=== PATIENT | female | born 1945 | race Caucasian/White ===

== ENCOUNTER 2025-01-18 08:54 | Outpatient (REF) | payer MEDICARE, SELFPAY ==
--- OUTSIDE RECORDS SUMMARY | 2025-01-18 09:59 | XMS_ITS ---
Author Name [facility] Organization Unknown Care Team Organization Name Specialty Phone Email Start Date End Da te [facility] 10/31/2024 [facility] JAJA RUSSELL Primary Care 01/19/2022 10/31/2023
== END 2025-01-18 08:55 | disposition home or self-care (01) ==
LOC: HO.HPHYSR 08:54
PROVIDERS: Visit Provider Physical Medicine & Rehabilitation
DX: M54.16 Radiculopathy, lumbar region (principal)
CPT/HCPCS: 62323; J2003; J3301

== ENCOUNTER 2025-01-18 08:54 | Outpatient (AMB) | payer MEDICARE, BC, SELFPAY ==
[2025-01-18 08:56] VITALS: BP 110/44; PULSE 63; TEMP 36.9; BMI 40.0
--- NOTE | 2025-01-18 08:56 | A.PHYSOV_ITS ---
Vital Signs 01/18/25 08:56 Height 5 ft Weight 205 lb BMI 40.0 BP 110/44 L Blood Pressure Location Lt radial Position Sitting Pulse 63 Pulse Source Pulse Oximeter Temp 98.4 F Temp Source Temporal Artery Scan Intake Visit Reasons: Lumbar VICKY L5-S1 Intake Note: 79 year old female here for procedure L5-S1 Epidural Steroid Injection Signal Wirer Required: No Allergies hydrocortisone (From Westcort ([id number])) Allergy (Unknown, Verified 01/16/25 13:56) Unknown neomycin (From Westcort ([id number])) Allergy (Unknown, Verified 01/16/25 13:56) Unknown Penicillins Allergy (Unknown, Verified 01/16/25 13:56) Unknown phenylephrine Allergy (Unknown, Verified 01/16/25 13:56) Unknown polymyxin B (From Westcort ([id number])) Allergy (Unknown, Verified 01/16/25 13:56) Unknown tetracaine Allergy (Unknown, Verified 01/16/25 13:56) Unknown tropicamide Allergy (Unknown, Verified 01/16/25 13:56) Unknown Office Procedures Procedure Details: Preop diagnosis: Lumbar radiculitis Postop diagnosis: The same After informed consent was obtained patient was brought into the procedure room and placed in the prone position on the procedure table. Skin over the lumbar sacral area was prepped and draped in usual sterile manner. [] interlaminar space was visualized utilizing fluoroscopy. After skin was anesthetized with 1% lidocaine solution, 3.5 in 20 gauge Toughy needle was introduced percutaneously and advanced toward the epidural space at the indicated level. Loss of resistance technique was utilized. Needle placement was verified utilizing 3 cc of Omnipaque contrast solution. Excellent epidural spread was visualized without evidence of vascular uptake. Total volume of 8 cc containing 2 cc of 1% lidocaine, 40 mg of triamcinolone and normal saline solution were injected after negative aspiration for blood and cerebrospinal fluid. Radiation exposure was documented in the chart. Lumbar Interlaminar Epidural 00829- use with FL Gd order: Lumbar Interlaminar Epidural Steroid Injection 57276 Procedure code (CPT) selection complete Office Meds Kenalog 40 mg/mL suspension for injection Performing Provider: Chacorta Bella DO Performing Location: [facility] Administered by: Chacorta Bella DO on 01/18/25 09:00 Dose Route Admin Location Dispensed Lot Number Expiration Date [facility] Boiler Control Technician 40 mg IM 1 mL [id number] AMNEAL BIOS CIEN Total Dispensed Waste 1 mL 0 % lidocaine (PF) 10 mg/mL (1 %) injection solution Performing Provider: Chacorta Bella DO Performing Location: [facility] Administered by: Chacorta Bella DO on 01/18/25 09:00 Dose Route Admin Location Dispensed Lot Number Expiration Date [facility] Boiler Control Technician 5 mL epidural 30 mL [id number] EUGIA US L LC Total Dispensed Waste 30 mL 83.33 % Assessment & Plan Assessment & Plan (1) Lumbar radiculitis: Code(s): M54.16 - Radiculopathy, lumbar region Category: Medical Plan: Procedure completed Orders: Orders AMB Lumbar Interlaminar Epidural Steroid Injection Today M54.16 - Radiculopathy, lumbar region FL Gd L Spine Interlaminar Inj Today M54.16 - Radiculopathy, lumbar region Coding Level of Care Code Procedure Only Diagnoses Lumbar radiculitis M54.16 CPT Codes Lumbar Interlaminar Epidural Steroid I - 23839 - Lumbar Interlaminar Epidural: Lumbar Interlaminar Epidural Steroid Injection [id number] ([id number])
--- OUTSIDE RECORDS SUMMARY | 2025-01-18 09:44 | XMS_ITS | Encounter Summary ---
Author Organization [facility] Address [address] [place] [address] Care Team Providers Care Screw Eye Assembler Name Role Phone Cordell Guevara MD Primary Care Provider [phone] Moses Reis MD Unavailable Unavailable Joaquim Cross MD Unavailable Unavailabl e Reason for Visit * Reason Onset Date Comments Hand Trimmer Feedback 12/09/2022 REFERRAL TO CARD IOLOGY Encounter Details Date Type Department Care Team Description 12/09/2022 Telephone Adult Medicine - [place] [address] [place] [address] Cordell Guevara MD [address] [place] [address] Hand Trimmer Feedback (REFERRAL TO CARDIOLOGY) Social History Tobacco Use Types Packs/Day Years Used Date Smoking Tobacco: Former Cigarettes 5 42 Q uit: 2010 Smokeless Tobacco: Never Alcohol Use Standard Drinks/Week Comments No 0 (1 standard drink = 0.6 oz pur e alcohol) Alcohol Habits Answer Date Recorded How often do you have a drin k containing alcohol? Never 07/23/2022 How many drinks containing a lcohol do you have on a typical day when you are drinking? Patient does not drink 07/23/2022 How often do you have six or more drinks on one occasion? Never 07/23/2022 Social Isolation Answer Date Recorded In a typical week, how many times do you talk on the phone with family, friends, or neighbors? More than three times a week 07/23/2022 How often do you get togethe r with friends or relatives? More than three times a week 07/23/2022 How often do you attend chur or congregational services? Never 07/23/2022 Do you belong to any clubs o r organizations such as zoroastrian groups, unions, fraternal or athletic groups, or school groups? Yes 07/23/2022 How often do you attend meet ings of the clubs or organizations you belong to? Never 07/23/2022 Are you now , , , , never or living with a partner? 07/23/2022 Physical Activity Answer Date Recorded On average, how many days pe r week do you engage in moderate to strenuous exercise (like walking fast, running, jogging, dancing, swimming, biking, or other activities that cause a light or heavy sweat)? 2 days 07/23/2022 On average, how many minutes do you engage in exercise at this level? 20 min 07/23/2022 Stress Answer Date Recorded Do you feel stress - tense, restless, nervous, or anxious, or unable to sleep at night because your mind is troubled all the time - these days? Not at all 07/23/2022 Financial Resource Strain Answer Date R ecorded How hard is it for you to pa y for the very basics like food, housing, medical care, and heating? Not hard at all 07/23/2022 Intimate Partner Violence Answer Date R ecorded Within the last year, have y ou been afraid of your partner or ex-partner? No 07/23/2022 Within the last year, have y ou been humiliated or emotionally abused in other ways by your partner or ex-partner? No Within the last year, have y ou been kicked, hit, slapped, or otherwise physically hurt by your partner or ex-partner? No 07/23/2022 Within the last year, have y ou been raped or forced to have any kind of sexual activity by your partner or ex-partner? No 07/23/2022 Food Insecurity Answer Date Recorded Within the past 12 months, y ou worried that your food would run out before you got money to buy more. Never true 07/23/2022 Within the past 12 months, t he food you bought just didn't last and you didn't have money to get more. Never true 07/23/2022 Housing Stability Answer Date Recorded In the last 12 months, was t here a time when you were not able to pay the mortgage or rent on time? No 07/23/2022 In the last 12 months, how many places have you lived? 1 07/23/2022 In the last 12 months, was t here a time when you did not have a steady place to sleep or slept in a intermediate (including now)? No 07/23/2022 Sex Assigned at Date Recorded Not on file Job Start Date Occupation Industry Not on file Not on file Not on file documented as of this encounter Miscellaneous Notes * Telephone Encounter - April uRbychie - 12/09/2022 11:25 AM EDT Authorization/Referral - [id number] Certification Status: A1 - Certified in Total Review Information Review Type: Referral - Initial Review #: [id number] Tracking #: Review Decision Reason: Service Type: Consultation Place of Service: 11 Type: Visits Quantity: 12 Event Date: 12/09/2022 - 12/09/2023 documented in this encounter Plan of Treatment Not on file documented as of this encounter Visit Diagnoses Not on filedocumented in this encounter Care Teams Screw Eye Assembler Relationship Specialty Start Date End Date Cordell Guevara MD [address] [place] [address] PCP - General 04/25/10 Moses Reis MD [address] [place] [address] Vascular Surgery 07/23/22 Joaquim Cross MD [address] [place] [address] Referring Physician Internal Medicine 07/23/22 documented as of this encounter
--- OUTSIDE RECORDS SUMMARY | 2025-01-18 09:44 | XMS_ITS | Encounter Summary ---
Author Organization [facility] Address [address] [place] [address] Care Team Providers Care Visual Merchandising Director Name Role Phone Cordell Guevara MD Primary Care Provider [phone] [phone] Moses Reis MD Unavailable Unavailable Joaquim Cross MD Unavailable Unavailabl e Encounter Details Date Type Department Care Team Description 05/08/2019 [place] Machine Operator Report Medical Records [address] [place] [id number] Faustino Reis Social History Tobacco Use Types Packs/Day Years Used Date Smoking Tobacco: Former Cigarettes 5 42 Smokeless Tobacco: Never Comments:started smoking aga in 1 pack every 3 days Alcohol Use Standard Drinks/Week Comments No 0 [...] How often do you attend chur or spiritism services? Never 07/23/2022 Do you belong to any clubs o r organizations such as mu-ism groups, unions, fraternal or athletic groups, or [...] place to sleep or slept in a fpc (including now)? No 07/23/2022 Sex Assigned at Date Recorded Not on file Job Start Date Occupation Industry Not on file Not on file Not on file documented as of this encounter Plan of Treatment Not on file documented as of this encounter Visit Diagnoses Not on filedocumented in this encounter Care Teams Visual Merchandising Director Relationship Specialty Start Date End Date Cordell Guevara MD [address] [place] [address] PCP - General 04/25/10 Moses Reis MD [address] [place], [place] Vascular Surgery 07/23/22 Joaquim Cross MD [address] [place] [address] Referring Physician Internal Medicine 07/23/22 documented as of this encounter
--- OUTSIDE RECORDS SUMMARY | 2025-01-18 09:44 | XMS_ITS | Encounter Summary ---
Author Organization [facility] Address [address] [place] [address] Care Team Providers Care Key Bed Installer Name Role Phone Cordell Guevara MD Primary Care Provider [phone] Moses Reis MD Unavailable Unavailable Joaquim Cross MD Unavailable Unavailabl e Encounter Details Date Type Department Care Team Description 12/17/2019 Orders Only Radiology - [address] [address] Radiology, Authorizing Social History Tobacco Use Types Packs/Day Years [...] week 07/23/2022 How often do you attend [facility] or pentecostal services? Never 07/23/2022 Do you belong to any clubs o r organizations such as orthodox groups, unions, fraternal or athletic groups, or [...] place to sleep or slept in a retirement (including now)? No 07/23/2022 Sex Assigned at Date Recorded Not on file Job Start Date Occupation Industry Not on file Not on file Not on file documented as of this encounter Plan of Treatment Not on file documented as of this encounter Visit Diagnoses Not on filedocumented in this encounter Care Teams Key Bed Installer Relationship Specialty Start Date End Date Cordell Guevara MD [address] [place] [id number] PCP - General 04/25/10 Moses Reis MD [address] [place] [address] Vascular Surgery 07/23/22 Joaquim Cross MD [address] [place] [address] Referring Physician Internal Medicine 07/23/22 documented as of this encounter
--- OUTSIDE RECORDS SUMMARY | 2025-01-18 09:45 | XMS_ITS | Clinical Summary ---
Author Organization [facility] Address [address] [place] [address] Care Team Providers Care Group Fitness Department Head Name Role Phone Cordell Guevara MD Primary Care Provider [phone] Moses Reis MD Unavailable Unavailable Joaquim Cross MD Unavailable Unavailabl e Allergies Active Allergy Reactions Severity Noted Date Comments Neosporin 08/05/2005 Eye ointment Penicillins 08/05/2005 rash swelling Phenylephrine Swelling/Edema 06/21/2018 Eye drops Tetracaine Swelling/Edema 06/21/2018 Eye drops Tropicamide Swelling/Edema 06/21/2018 Eye drops Medications Medication Sig Dispensed Refills Start Date End Date Status omeprazole (PRILOSEC) 20 MG capsule Take 20 mg by mouth daily. 0 Active atorvastatin (LIPITOR) 40 MG tablet 0 10/20/2018 Active carvedilol (COREG) 25 MG tablet 2 times daily. 0 10/20/2018 Active aspirin 81 MG chewable tablet Take 81 mg by mouth daily. 0 Active vitamin B-12 (CYANOCOBALAMIN) 50 MCG tablet Take 1 Tablet by mouth daily. 0 Active Cholecalciferol (Vitamin D) 25 MCG (1000 UT) Tab Take 1 Tablet by mouth daily. 0 Active amlodipine (NORVASC) 10 MG tablet Take 1 Tablet by mouth daily. 0 05/28/2022 Active ALBUTEROL SULFATE 108 (90 Base) MCG/ACT Aero Soln Inhale 2 Puffs into the lungs 4 times daily as needed for Cough or Wheezing. 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 180 Tablet 1 07/29/2023 Active furosemide (LASIX) 20 MG tablet Take 1 Tablet by mouth daily for 180 days. Add to the 40 mg a day to make 60 mg A day 30 Tablet 5 07/29/2023 Active furosemide (LASIX) 40 MG tablet Take 1 Tablet by mouth daily. In adddition with 20 mg for a total dose of 60 mg daily 90 Tablet 1 07/29/2023 Active levothyroxine (SYNTHROID, LEVOTHROID) 25 MCG tablet Take 1 Tablet by mouth daily. 90 Tablet 1 07/29/2023 Active losartan (COZAAR) 50 MG tabletIndications:Es sential hypertension, benign Take 1 Tablet by mouth daily for 180 days. 90 Tablet 1 07/29/2023 Active Active Problems Problem Noted Date Carotid artery stenosis 09/03/2019 Overview: S/p transcarotid revascularization angioplasty and stenting. Dr. 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 Hypothyroid 06/29/2011 Vitamin D deficiency 05/13/2011 Vitamin B12 deficiency 05/13/2011 Condylomata acuminata 01/15/2009 History of cervical dysplasia 01/15/2009 Sprain of lumbosacral (joint) (ligament) 04/27/2007 Overview: IMO update Hand pain 02/14/2007 Overview: Lt. Thumb advanced OA Essential hypertension, benign 6 PERIPHERAL VASCULAR DISEASE- 08/05/2005 Overview: Left 70%, sees vascular regularly Pure hypercholesterolemia 08/05/2005 COPD-35 pack years 08/05/2005 Resolved Problems Problem Noted Date Resolved Date Subclinical hypothyroidism 05/13/201107/04 Immunizations Name Administration Dates Next Due COVID-19 (Pfizer) 12/31/2022, 2,01/08/2021, 021,06/11/2020 Covid-19 Bivalent (Pfizer) 12/29/2021 Influenza vaccine high dose age 65 and over 12/31/2022,01/22/2022,01/14/2020 Rotateq 12/31/2022 TETANUS/DIPTHERIA (ADULT) 10/28/2002 Family History Medical History Relation Name Comments Celiac Disease Daughter Cholesterol Level Father Hypertension Father [place] Father CAD Mother Cholesterol Level Mother Hypertension Mother CA Breast Sister Relation Name Status Comments Daughter Alive Father Maternal Grandfather Maternal Grandmother Mother Paternal Grandfather Paternal Grandmother Sister Social History Tobacco Use Types Packs/Day Years Used Date Smoking Tobacco: Former Cigarettes 5 42 Q uit: 2010 Smokeless Tobacco: Never Tobacco Cessation:Counseling Given: Not Answered Alcohol Use Standard Drinks/Week Comments No 0 [...] How often do you attend chur or taoism services? Never 07/23/2022 Do you belong to any clubs o r organizations such as gnosticist groups, unions, fraternal or athletic groups, or [...] place to sleep or slept in a long-term (including now)? No 07/23/2022 Sex Assigned at Date Recorded Not on file Job Start Date Occupation Industry Not on file Not on file Not on file Last Filed Vital Signs Vital Sign Reading Time Taken Comments Blood Pressure 109/65 07/29/2023 1:13 PM EDT Pulse 56 07/29/2023 1:13 PM EDT Temperature 36.7 C (98 F) 07/29/2023 1:13 PM EDT Respiratory Rate 16 01/28/2021 3:31 PM EST Oxygen Saturation 96% 02/03/2021 10:06 AM EST Inhaled Oxygen Concentration - - Weight 96.6 kg (213 lb) 07/29/2023 1:13 PM EDT Height 152.4 cm (5') 07/29/2023 1:13 PM EDT Body Mass Index 41.6 07/29/2023 1:13 PM EDT Plan of Treatment Health Maintenance Due Date Last Done Comments SHINGLES VACCINE (1 of 2) 12/02/1997 COLON CANCER SCREENING 12/20/2018 8 (External Completion), 08/15/2015 (Refused), 01/02/2013 (Refused), Additional history exists SPIROMETRY (BREATHING CAPACITY TEST) FOR COPD 12/21/2019 12/20/2017 (External Completion), 08/15/2015 (Refused), 01/02/2013 (Refused), Additional history exists Lung Cancer Screening (Low Dose CT) 12/28/2019 12/27/2018 FALL RISK ASSESSMENT 06/20/2021 06/20/2020, 12/22/2018, 12/20/2017, Additional history exists BONE DENSITY SCREENING 04/29/2022 , 12/20/2017 (Refused), 12/20/2013, Additional history exists DTAP/TDAP/TD (3 - Td or Tdap) 10/23/2022 10/23/2012, 10/23/2012 (External Completion), 03/14/2002 DEPRESSION SCREEN 07/24/2023 07/23/2022, , 12/22/2018, Additional history exists BMI CHECK/ADVISE 03/14/2024 11/06/2020 (Com pleted), 05/09/2018, 03/17/2018, Additional history exists MAMMOGRAM 05/10/2024 05/10/2023, 04/15, 05/01/2021, Additional history exists DIABETES/HEART DISEASE: ANNUAL CHOLESTEROL (LDL) 07/24/2024 07/25/2023, 01/27/2023, 07/16/2022, Additional history exists Covid-19 Vaccine ( season) 2024 12/31/2022, 12/29/2021, 07/18/2021, Additional history exists INFLUENZA (#1) 2024 12/31/2022, 01/12, 01/14/2020, Additional history exists HEPATITIS C SCREENING Addressed 01/02/2013 (Refused ) Overridden with the intention of not completing the topic PNEUMOCOCCAL VACCINE Addressed 12/20/2017 (Exceptio n) Overridden with the intention of not completing the topic Care Teams Group Fitness Department Head Relationship Specialty Start Date End Date Cordell Guevara MD [address] [place] [address] PCP - General 04/25/10 Moses Reis MD [address] [place] [address] Vascular Surgery 07/23/22 Joaquim Cross MD [address], [place] Referring Physician Internal Medicine 07/23/22
--- OUTSIDE RECORDS SUMMARY | 2025-01-18 09:45 | XMS_ITS | Encounter Summary ---
Author Organization [facility] Address [address] [place] [address] Care Team Providers Care Clinical Cytogeneticist Name Role Phone Cordell Guevara MD Primary Care Provider [phone] Moses Reis MD Unavailable Unavailable Joaquim Cross MD Unavailable Unavailabl e Encounter Details Date Type Department Care Team Description 06/17/2016 Business Doc Medical Records [address] [place] [id number] Abstract, Provider Social History Tobacco Use Types Packs/Day Years Used Date Smoking Tobacco: Former Cigarettes 5 42 Comments:started smoking aga in 1 pack every [...] How often do you attend chur or restoration services? Never 07/23/2022 Do you belong to any clubs o r organizations such as jew groups, unions, fraternal or athletic groups, or [...] on filedocumented in this encounter Care Teams Clinical Cytogeneticist Relationship Specialty Start Date End Date Cordell Guevara MD [address] [place] [address] PCP - General 04/25/10 Moses Reis MD [address] [place] [address] Vascular Surgery 07/23/22 Joaquim Cross MD [address] [place] [address] Referring Physician Internal Medicine 07/23/22 documented as of this encounter
--- OUTSIDE RECORDS SUMMARY | 2025-01-18 09:45 | XMS_ITS | Encounter Summary ---
Author Organization [facility] Address [address] [place] [address] Care Team Providers Care Electrical Manufacturing Engineer Name Role Phone Cordell Guevara MD Primary Care Provider [phone] Moses Reis MD Unavailable Unavailable Joaquim Cross MD Unavailable Unavailabl e Encounter Details Date Type Department Care Team Description 08/03/2018 Landscape Foreman Report Medical Records [address] [place] [address] Jad Hollingsworth MD Social History Tobacco Use Types Packs/Day Years [...] week 07/23/2022 How often do you attend [facility] or mu-ism services? Never 07/23/2022 Do you belong to any clubs o r organizations such as holiness groups, unions, fraternal or athletic groups, or [...] place to sleep or slept in a snf (including now)? No 07/23/2022 Sex Assigned at Date Recorded Not on file Job Start Date Occupation Industry Not on file Not on file Not on file documented as of this encounter Plan of Treatment Not on file documented as of this encounter Visit Diagnoses Not on filedocumented in this encounter Care Teams Electrical Manufacturing Engineer Relationship Specialty Start Date End Date Cordell Guevara MD [address] [place] [address] PCP - General 04/25/10 Moses Reis MD [address] [place], [place] Vascular Surgery 07/23/22 Joaquim Cross MD [address] [place] [address] Referring Physician Internal Medicine 07/23/22 documented as of this encounter
--- OUTSIDE RECORDS SUMMARY | 2025-01-18 09:45 | XMS_ITS | Encounter Summary ---
Author Organization [facility] Address [address] [place] [address] Care Team Providers Care Respiratory Supervisor Name Role Phone Cordell Guevara MD Primary Care Provider [phone] [phone] Moses Reis MD Unavailable Unavailable Joaquim Cross MD Unavailable Unavailabl e Reason for Visit * Reason Onset Date Comments lab test 07/22/2023 Encounter Details Date Type Department Care Team Description 07/22/2023 Telephone Adult Medicine - [place] [address] [place] [address] Cordell Guevara MD [address] [place] [address] lab test Social History Tobacco Use Types Packs/Day Years [...] 07/23/2022 How often do you attend chur ch or yarsanism services? Never 07/23/2022 Do you belong to any clubs o r organizations such as religious groups, unions, fraternal or athletic groups, or [...] place to sleep or slept in a jail (including now)? No 07/23/2022 Sex Assigned at Date Recorded Not on file Job Start Date Occupation Industry Not on file Not on file Not on file documented as of this encounter Miscellaneous Notes * Telephone Encounter - Courtney Ordaz M.A. - 07/22/2023 1:52 PM EDT Spoke o pt and pt will stop in lab work * Telephone Encounter - Darren Blanchard - 07/22/2023 12:41 PM EDT Patient has an appointment on 07/29/[address] to order a lab work for her. Please review and order documented in this encounter Plan of Treatment Not on file documented as of this encounter Results * (ABNORMAL) THYROID PROFILE W/TSH (07/25/2023 9:47 AM EDT) TSH CASCADE 4.74(H) 0.40 - 4.00 uIU/ml 07/25/2023 1:27 PM EDT [facility] 07/25/2023 9:47 AM EDT 07/25/2023 9:47 AM EDT Narrative [facility] - 07/25/2023 1:27 PM EDT Release to patient->Immediate Ch Ismael ANAND [facility] * (ABNORMAL) CHG COMPREHENSIVE METABOLIC PANEL (07/25/2023 9:47 AM EDT) GLUCOSE 105(H) 70 - 100 mg/dL 07/25/2023 1:25 PM EDT [facility] Comment:Reference range appl icable to fasting specimens only Blood Urea Nitrogen 18 5 - 25 mg/dL 07/25/2023 1:25 PM EDT [facility] CREAT 0.86 0.5 - 1.1 mg/dL 07/25/2023 1:25 PM EDT [facility] GLOMERULAR FILTRATION RATE 70 >60 07/25/2023 1:25 PM EDT [facility] Comment: This eGFR result was calculated using the CKD-EPI 2020 Creatinine Equation NA 142 135 - 145 mEq/L 07/25/2023 1:25 PM EDT [facility] K 4.5 3.5 - 5.5 mmol/L 07/25/2023 1:25 PM EDT [facility] CL 106 96 - 110 mmol/L 07/25/2023 1:25 PM EDT [facility] CARBON DIOXIDE (CO2) 32 21 - 32 mmol/L 07/25/2023 1:25 PM EDT [facility] ANION GAP 4 3 - 11 07/25/2023 1:25 PM EDT [facility] CALCIUM 9.3 8.5 - 10.5 mg/dL 07/25/2023 1:25 PM EDT [facility] Albumin 3.5 3.2 - 5.0 G/dL 07/25/2023 1:25 PM EDT [facility] SGPT 15 10 - 60 U/L 07/25/2023 1:25 PM EDT [facility] TOTAL PROTEIN (TP) 7.0 6.0 - 8.0 G/dL 07/25/2023 1:53 PM EDT [facility] BILIRUBIN TOTAL 0.5 0.0 - 1.4 mg/dL 07/25/2023 1:53 PM EDT [facility] SGOT 15 10 - 42 U/L 07/25/2023 1:53 PM EDT [facility] ALK PHOS 89 42 - 121 U/L 07/25/2023 1:53 PM EDT [facility] 07/25/2023 9:47 AM EDT 07/25/2023 9:47 AM EDT Narrative [facility] - 07/25/2023 1:53 PM EDT Release to patient->Immediate Cordell Guevara MD LAB Performing Organization Address [facility] Co de Phone Number [facility] * CHG LIPID PANEL (07/25/2023 9:47 AM EDT) Cholesterol 149 0 - 200 mg/dL 07/25/2023 1:25 PM EDT [facility] TRIGLYCERIDES 83 0 - 150 mg/dL 07/25/2023 1:53 PM EDT [facility] HDL CHOLESTEROL 64 >40 mg/dL 1:53 PM EDT [facility] LDL CALCULATED 69 0 - 100 mg/dL 07/25/2023 1:53 PM EDT [facility] TC-HDLC RATIO 2.3 0 - 4.4 mg/dL 07/25/2023 1:53 PM EDT [facility] 07/25/2023 9:47 AM EDT 07/25/2023 9:47 AM EDT Narrative [facility] - 07/25/2023 1:53 PM EDT Release to patient->Immediate Cordell Guevara MD LAB Performing Organization Address [facility] Co de Phone Number [facility] * CHG 25 HYDROXY INCLUDES FRACTIONS IF PERFORMED (07/25/2023 9:47 AM EDT) VITAMIN D, 25-HYDROXY 35 30 - 80 ng/mL 07/25/2023 1:27 PM EDT [facility] 07/25/2023 9:47 AM EDT 07/25/2023 9:47 AM EDT Narrative [facility] - 07/25/2023 1:27 PM EDT Release to patient->Immediate Cordell Guevara MD LAB Performing Organization Address [facility]/ZIP Co de Phone Number [facility] * CHG CYANOCOBALAMIN VITAMIN B-12 (07/25/2023 9:47 AM EDT) VITAMIN B12 320 250 - 900 pg/mL 07/25/2023 1:53 PM EDT [facility] 07/25/2023 9:47 AM EDT 07/25/2023 9:47 AM EDT [facility] - 07/25/2023 1:53 PM EDT Release to patient->Immediate Cordell Guevara MD LAB [facility] ZIA documented in this encounter Visit Diagnoses Diagnosis Pure hypercholesterolemia- Primary Vitamin B12 deficiency Other B-complex deficiencies Vitamin D deficiency Unspecified vitamin D deficiency Hypothyroidism, unspecified type documented in this encounter Care Teams Respiratory Supervisor Relationship Specialty Start Date End Date Cordell Guevara MD [address] [place] [address] PCP - General 04/25/10 Moses Reis MD [address] [place] [address] Vascular Surgery 07/23/22 Joaquim Cross MD [address] [place] [address] Referring Physician Internal Medicine 07/23/22 documented as of this encounter
--- OUTSIDE RECORDS SUMMARY | 2025-01-18 09:45 | XMS_ITS | Encounter Summary ---
Author Organization [facility] Address [address] [place] [address] Care Team Providers Care Commercial Management Accountant Name Role Phone Cordell Guevara MD Primary Care Provider [phone] Moses Reis MD Unavailable Unavailable Joaquim Cross MD Unavailable Unavailabl e Encounter Details Date Type Department Care Team Description 09/02/2022 Electrical Test Engineer Report Medical Records [address] [place] [id number] Jaz Man Social History Tobacco Use Types Packs/Day Years Used Date Smoking Tobacco: Former Cigarettes 5 42 Q uit: 2011 Smokeless Tobacco: Never Alcohol Use Standard Drinks/Week [...] often do you attend chur ch or religion services? Never 07/23/2022 Do you belong to any clubs o r organizations such as temple groups, unions, fraternal or athletic groups, or [...] place to sleep or slept in a [place] [facility] (including now)? No 07/23/2022 Sex Assigned at Date Recorded Not on file Job Start Date Occupation Industry Not on file Not on file Not on file documented as of this encounter Plan of Treatment Not on file documented as of this encounter Visit Diagnoses Not on filedocumented in this encounter Care Teams Commercial Management Accountant Relationship Specialty Start Date End Date Cordell Guevara MD [address] [place] [address] PCP - General 04/25/10 Moses Reis MD [address] [place], [place] Vascular Surgery 07/23/22 Joaquim Cross MD [address] [place] [address] Referring Physician Internal Medicine 07/23/22 documented as of this encounter
--- OUTSIDE RECORDS SUMMARY | 2025-01-18 09:45 | XMS_ITS | Encounter Summary ---
Author Organization [facility] Address [address] [place] [address] Care Team Providers Care Bobbin Hauler Name Role Phone Cordell Guevara MD Primary Care Provider [phone] Moses Reis MD Unavailable Unavailable Joaquim Cross MD Unavailable Unavailabl e Encounter Details Date Type Department Care Team Description 07/05/2018 Release of Information Medical Records [address] [place] [id number] Abstract, Provider Social History Tobacco Use Types [...] How often do you attend chur or sikhism services? Never 07/23/2022 Do you belong to [...] place to sleep or slept in a skilled nursing (including now)? No 07/23/2022 Sex Assigned at Date Recorded Not on file Job Start Date Occupation Industry Not on file Not on file Not on file documented as of this encounter Plan of Treatment Not on file documented as of this encounter Visit Diagnoses Not on filedocumented in this encounter Care Teams Bobbin Hauler Relationship Specialty Start Date End Date Cordell Guevara MD [address] [place] [address] PCP - General 04/25/10 Moses Reis MD [address] [place] [address] Vascular Surgery 07/23/22 Joaquim Cross MD [address] [place] [address] Referring Physician Internal Medicine 07/23/22 documented as of this encounter
--- OUTSIDE RECORDS SUMMARY | 2025-01-18 09:45 | XMS_ITS | Encounter Summary ---
Author Organization [facility] Address [address] [place] [address] Care Team Providers Care Welt Rander Name Role Phone Cordell Guevara MD Primary Care Provider [phone] Moses Reis MD Unavailable Unavailable Joaquim Cross MD Unavailable Unavailabl e Encounter Details Date Type Department Care Team Description 05/05/2022 Business Doc Medical Records [address] [place] [id number] Abstract, Provider Social History Tobacco Use Types [...] How often do you attend chur or restorationism services? Never 07/23/2022 Do you belong to any clubs o r organizations such as yazidi groups, unions, fraternal or athletic groups, or [...] file Not on file Not on file COVID-19 Exposure Response Date Recorded In the last 10 days, have yo u been in contact with someone who was confirmed or suspected to have Coronavirus/COVID-19? No / Unsure 05/05/2022 1:52 PM EST documented as of this encounter Plan of Treatment Not on file documented as of this encounter Visit Diagnoses Not on filedocumented in this encounter Care Teams Welt Rander Relationship Specialty Start Date End Date Cordell Guevara MD [address] [place] [address] PCP - General 04/25/10 Moses Reis MD [address] [place] [address] Vascular Surgery 07/23/22 Joaquim Cross MD [address] [place] [address] Referring Physician Internal Medicine 07/23/22 documented as of this encounter
--- OUTSIDE RECORDS SUMMARY | 2025-01-18 09:45 | XMS_ITS | Encounter Summary ---
Author Organization [facility] Address [address] [place] [address] Care Team Providers Care Contact Lens Fitter Name Role Phone Cordell Guevara MD Primary Care Provider [phone] Moses Reis MD Unavailable Unavailable Joaquim Cross MD Unavailable Unavailabl e Encounter Details Date Type Department Care Team Description 02/23/2018 Yard Clerk Report Medical Records [address] [place] [id number] Jaz Man Social History Tobacco Use Types [...] week 07/23/2022 How often do you attend [facility] or gnosticist services? Never 07/23/2022 Do you belong to any clubs o r organizations such as christianity groups, unions, fraternal or athletic groups, or [...] place to sleep or slept in a group home (including now)? No 07/23/2022 Sex Assigned at Date Recorded Not on file Job Start Date Occupation Industry Not on file Not on file Not on file documented as of this encounter Plan of Treatment Not on file documented as of this encounter Visit Diagnoses Not on filedocumented in this encounter Care Teams Contact Lens Fitter Relationship Specialty Start Date End Date Cordell Guevara MD [address] [place] [address] PCP - General 04/25/10 Moses Reis MD [address] [place] [address] Vascular Surgery 07/23/22 Joaquim Cross MD [address] [place] [address] Referring Physician Internal Medicine 07/23/22 documented as of this encounter
--- OUTSIDE RECORDS SUMMARY | 2025-01-18 09:45 | XMS_ITS | Encounter Summary ---
Author Organization [facility] Address [address] [place] [address] Care Team Providers Care Environmental Health And Safety Intern Name Role Phone Cordell Guevara MD Primary Care Provider [phone] Moses Reis MD Unavailable Unavailable Joaquim Cross MD Unavailable Unavailabl e Encounter Details Date Type Department Care Team Description 10/10/2023 Kosher Sealer Report Medical Records [address] [place] [address] Soledad Fall Social History Tobacco Use Types Packs/Day Years [...] How often do you attend chur or muslim services? Never 07/23/2022 Do you belong to any clubs o r organizations such as jewish groups, unions, fraternal or athletic groups, or [...] place to sleep or slept in a [facility] (including now)? No 07/23/2022 Sex Assigned at Date Recorded Not on file Job Start Date Occupation Industry Not on file Not on file Not on file documented as of this encounter Plan of Treatment Not on file documented as of this encounter Visit Diagnoses Not on filedocumented in this encounter Care Teams Environmental Health And Safety Intern Relationship Specialty Start Date End Date Cordell Guevara MD [address] [place] [address] PCP - General 04/25/10 Moses Reis MD [address] [place], [place] Vascular Surgery 07/23/22 Joaquim Cross MD [address] [place] [address] Referring Physician Internal Medicine 07/23/22 documented as of this encounter
--- OUTSIDE RECORDS SUMMARY | 2025-01-18 09:46 | XMS_ITS | Encounter Summary ---
Author Organization [facility] Address [address] [place] [address] Care Team Providers Care Elementary School Director Name Role Phone Cordell Guevara MD Primary Care Provider [phone] Moses eRis MD Unavailable Unavailable Joaquim Cross MD Unavailable Unavailabl e Encounter Details Date Type Department Care Team Description 12/07/2013 Business Doc Medical Records [address] [place] [id number] Abstract, Provider Social History Tobacco Use Types [...] How often do you attend chur or orthodoxy services? Never 07/23/2022 Do you belong to any clubs o r organizations such as anglican groups, unions, fraternal or athletic groups, or [...] on filedocumented in this encounter Care Teams Elementary School Director Relationship Specialty Start Date End Date Cordell Guevara MD [address] [place] [address] PCP - General 04/25/10 Moses Reis MD [address] [place] [address] Vascular Surgery 07/23/22 Joaquim Cross MD [address] [place] [address] Referring Physician Internal Medicine 07/23/22 documented as of this encounter
--- OUTSIDE RECORDS SUMMARY | 2025-01-18 09:46 | XMS_ITS | Encounter Summary ---
Author Organization [facility] Address [address] [place] [address] Care Team Providers Care Wire Wrapper Machine Operator Name Role Phone Cordell Guevara MD Primary Care Provider [phone] Moses Reis MD Unavailable Unavailable Joaquim Cross MD Unavailable Unavailabl e Encounter Details Date Type Department Care Team Description 08/19/2020 Grease Rack Worker Report Medical Records [address] [place] [address] Moses Reis MD Social History Tobacco Use Types Packs/Day [...] week 07/23/2022 How often do you attend [facility] or uatsdin services? Never 07/23/2022 Do you belong to any clubs o r organizations such as christian groups, unions, fraternal or athletic groups, or [...] place to sleep or slept in a long term (including now)? No 07/23/2022 Sex Assigned at Date Recorded Not on file Job Start Date Occupation Industry Not on file Not on file Not on file documented as of this encounter Plan of Treatment Not on file documented as of this encounter Visit Diagnoses Not on filedocumented in this encounter Care Teams Wire Wrapper Machine Operator Relationship Specialty Start Date End Date Cordell Guevara MD [address] [place] [address] PCP - General 04/25/10 Moses Reis MD [address] [place] [address] Vascular Surgery 07/23/22 Joaquim Cross MD [address] [place] [address] Referring Physician Internal Medicine 07/23/22 documented as of this encounter
--- OUTSIDE RECORDS SUMMARY | 2025-01-18 09:46 | XMS_ITS | Clinical Summary ---
Author Organization [facility] [address] [facility] lding Address [address] [place] [address] Phone Care Team Providers Care Transportation Museum Helper Name Role Phone Celina Guevara MD Primary Care Prov ider Allergies Active Allergy Reactions Criticality Noted Date Comments Neomycin-Polymyxin B Gu 08/05/2005 Eye ointment Penicillins 08/05/2005 rash swelling Phenylephrine Swelling 06/21/2018 Eye drops Tetracaine Swelling 06/21/2018 Eye drops Tropicamide Swelling 06/21/2018 Eye drops Medications amLODIPine (NORVASC) 10 mg tablet Take 1 tablet (10 mg total) by mouth at bedtime. 05/28/2022 Active aspirin 81 mg chewable tablet Chew 1 tablet (81 mg total) 1 (one) time each day. Active carvediloL (COREG) 25 mg tablet 2 times daily. 10/20/2018 Active cholecalciferol (VITAMIN D-3) 25 mcg (1,000 unit) tablet Take 1 tablet (1,000 Units total) by mouth 1 (one) time each day. Active omeprazole (PriLOSEC) [address] capsule Take 1 capsule (20 mg total) by mouth 1 (one) time each day. Active cyanocobalamin (VITAMIN B-12) 50 mcg tablet Take 1 tablet (50 mcg total) by mouth 1 (one) time each day. Active albuterol HFA (PROAIR HFA ; PROVENTIL HFA ; VENTOLIN HFA) 90 mcg/actuation inhaler Inhale 2 puffs by mouth every 6 (six) hours if needed for wheezing. 6.7 g 3 01/30/2024 Active losartan (COZAAR) 50 mg tablet TAKE 1 TABLET BY MOUTH 1 TIME EACH DAY. 90 tablet 1 07/25/2024 Active allopurinoL (ZYLOPRIM) 100 mg tablet TAKE 2 TABLETS BY MOUTH 1 TIME EACH DAY. 180 tablet 1 08/29/2024 Active levothyroxine (SYNTHROID, LEVOTHROID) 50 mcg tablet TAKE 1 TABLET BY MOUTH EVERY DAY 90 tablet 1 09/25/2024 Active atorvastatin (LIPITOR) 40 mg tablet TAKE 1 TABLET BY MOUTH EVERY DAY 90 tablet 1 09/26/2024 Active furosemide (LASIX) 40 mg tablet Take 1 tablet (40 mg total) by mouth 2 (two) times a day. 60 each 5 10/30/2024 Active Active Problems Problem Noted Date Diagnosed Date Carotid artery stenosis 09/03/2019 Overview (12/20/2023): S/p transcarotid revascularization angioplasty and stenting. Dr. 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 Hypothyroid 06/29/2011 Vitamin B12 deficiency 05/13/2011 Vitamin D deficiency 05/13/2011 Condylomata acuminata 01/15/2009 Sprain of ligament of lumbosacral joint 04/27/19 08 Overview (12/20/2023): IMO update Hand pain 02/14/2007 Overview (12/20/2023): Lt. Thumb advanced OA Essential hypertension, benign 08/05/2005 Chronic obstructive airway d isease ([facility] V24, [facility] V28) 08/05/2005 Peripheral vascular disease ([facility] V24) 2005 Overview (12/20/2023): Left 70%, sees vascular regularly Pure hypercholesterolemia 08/05/2005 Encounters Date Type Department Care Team Description 11/27/2024 Telephone Adult Medicine [facility] [address] [place] [phone] Celina Cullen MD 11/01/2024 1:30 PM EDT Telemedicine Internal Medicine - [address] [phone] Encounter for subsequent annual wellness visit (AWV) in Medicare patient (Primary Dx) 10/30/2024 1:30 PM EDT Office Visit Adult Medicine [address] [phone] Celina Cullen MD Essential hypertension, benign (Primary Dx); Peripheral vascular disease (CMS/[facility] V24); Right lower lobe lung mass 10/30/2024 Telephone Adult [address] [phone] Celina Cullen MD 10/29/2024 Telephone Internal Medicine - [address] [phone] Savanna Isaacs [place] 10/26/2024 Telephone Adult [address] [phone] Celina Cullen MD from Last 3 Months Immunizations Immunization Administration Dates Next Due COVID-19 (Pfizer/Comirnaty) 12yo and older 12/31/2022 Influenza Quadravalent, 0.5m l (Fluad) 65yo and older 12/28/2022 Influenza trivalent, 0.5mL ( Fluzone High-dose) 65yo and older 11/22/2023,12/31/2022,01/22/2022,2019 Pfizer (ages 12 & older) Biv alent, COVID-19 12/29/2021 Pfizer (ages 12 & older) AMANDA S-CoV-2 COVID-19, mRNA, LNP-S, markell-sucrose, preservative free 07/14/2021 Playlore Covid-19 Bivalent, Or iginal + Ba.1 (Non-US Trademark COMIRNATDeneen Bivalent) 12/29/2021 [employer] SARS-CoV-2 COVID-19, mRNA, LNP-S, preservative free 12/31/2022,07/18/2021,01/08/2021,2020 RSV, bivalent, protein subun it RSVpreF, 0.5mL, Preservative Free (Arexvy) 50yo and older 11/22/2023,12/28/2022 Rotavirus Pentavalent 3 dose s Oral (Rotateq) 6wks to less than 8mo 12/31/2022 Td, Unspecified 10/28/2002 Tdap Tetanus diptheria acell ular pertussis (Boostrix; Adacel) 7yo and older 10/23/2012,03/14/2002 Surgical History Surgery Date Site/Laterality Comments TONSILLECTOMY PROCEDURE: HISTORICAL TONSILLECTOMY HYSTERECTOMY age 29 PROCEDURE: HISTORICAL HYSTERECTOMY; COMMENT: TVH for severe cervical dysplasia CAROTID ENDARTERECTOMY PROCEDURE: HISTORICAL CAROTID ENDART; COMMENT: 01/2011 BREAST BIOPSY PROCEDURE: BX BREAST; PERC NEEDLE CORE W/IMAG GUID; COMMENT: lt.stereotactic core bx.benign OTHER SURGICAL HISTORY PROCEDURE: ---- OTHER ----; COMMENT: transcarotid revascularization angioplasty and stenting LUNG REMOVAL, PARTIAL Right 1/3 lung removed 10/22/2024 Medical History Medical History Date Comments Peripheral vascular disease, unspecified ([facility]/H[facility] V24) 08/05/2005 DX:Peripheral vascular disea se, unspecified ([facility]); COMMENT: left carotid with less than 50% stenosis Pure hypercholesterolemia 08/05/2005 DX:Pur e hypercholesterolemia Chronic airway obstruction, not elsewhere classified 08/05/2005 DX:Chronic airway obstructio n, not elsewhere classified Obesity, unspecified 08/05/2005 DX:Obesity, unspecified Hand pain 02/14/2007 DX:Hand pain; CO MMENT: Lt. 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 Dr. Reis Lung cancer ([facility] V24, [facility] V28) 10/22/2024 Family History Medical History Relation Name Comments Celiac disease Daughter Heart attack Father Hyperlipidemia Father Hypertension Father Coronary artery disease Mother Hyperlipidemia Mother Hypertension Mother Breast cancer Sister Relation Name Status Comments Daughter Alive Father Maternal Grandfather Maternal Grandmother Mother Paternal Grandfather Paternal Grandmother Sister Social History Tobacco Use Types Packs/Day Years Used Date Smoking Tobacco: Former Cigarettes Q uit: 03/14/2010 Smokeless Tobacco: Never Tobacco Cessation:Counseling Given: Not Answered Alcohol Use Standard Drinks/Week Comments No 0 (1 standard drink = 0.6 oz pur e alcohol) Housing Instability Answer Date Recorde d Are you worried that in the next 2 months you may not have stable housing? No 11/01/2024 Food Access & Nutrition Answer Date Rec orded Do you have access to a vari ety of food including fruits and vegetables? Yes 11/01/2024 Access to Healthcare Answer Date Record ed Within the last 3 months, ho w many times did you visit the emergency department for your medical care? 0 10/26/2024 Health Literacy Answer Date Recorded How often do you need to hav e someone help you when you read instructions, pamphlets, or other written material from your doctor or pharmacy? Never 11/01/2024 Caregiver: How often do you need to have someone help you when you read instructions, pamphlets, or other written material from your doctor or pharmacy? Not on file 11/01/2024 Financial Risk Answer Date Recorded How hard is it for you to pa y for the very basics like food, housing, medical care, and air conditioning / heating? Not very hard 11/01/2024 Transportation Answer Date Recorded Has the lack of transportati on kept you from meetings, work, or from getting things needed for daily living? No Has the lack of transportati on kept you from medical appointments or from getting medications? No 11/01/2024 Social Isolation Answer Date Recorded How often do you feel lonely or isolated from th ose around you? Never 11/01/2024 Food Risk Answer Date Recorded Within the past 12 months we worried whether our food would run out before we got money to buy more. Never true 11/01/2024 Within the past 12 months th e food we bought just didn't last and we didn't have money to get more. Never true 11/01/2024 Dependent Care Answer Date Recorded Do you need help finding or paying for care for your loved ones. For example, early childhood educator aide or elderly care for an older adult? No 11/01/2024 Education Answer Date Recorded Do you think completing more education or training, like finishing a GED, going to college, or learning a trade, would be helpful for you? No 11/01/2024 Employment and Income Answer Date Recor ded During the last four weeks, have you been actively looking for work? No 11/01/2024 Living Situation Answer Date Recorded What is your living situation? Unrecognized valu e 11/01/2024 Comments No Sex and Gender Information Value Date Recorded Sex Assigned at Not on file Legal Sex Female 8:46 AM EST Gender Identity Not on file Sexual Orientation Not on file Obstetrics History Para Term AB IAB SAB Ectopic Multiple Livin g Live Births 1 1 1 Date Outcome GA Total Labor Labor/2nd/3rd Weight Sex Type Anes PTL Yana A1 A5 Name Clin Term Last Filed Vital Signs Vital Sign Reading Time Taken Comments Blood Pressure 103/72 10/30/2024 1:48 PM EDT Pulse 70 10/30/2024 1:48 PM EDT Temperature 36.6 C (97.9 F) 10/30/2024 1:48 PM EDT Respiratory Rate - - Oxygen Saturation 94% 05/03/2024 9:35 AM EST Inhaled Oxygen Concentration - - Weight 98.2 kg (216 lb 9.6 oz) 10/30/2024 1:48 P M EDT Height 152.4 cm (5') 08/15/2024 1:26 PM EDT Body Mass Index 42.3 08/15/2024 1:26 PM EDT Plan of Treatment Upcoming Encounters Date Type Department Care Team (Late st Contact Info) Description 01/31/2025 1:00 PM EST Office Visit Adult Medicine - [place] [address] [place] [phone] Skye Schwab PA [address] [place] [address] 05/15/2025 1:20 PM EST Appointment Radiology Department - [address] [place] [phone] Health Maintenance Due Date Last Done Comments Pneumococcal Vaccine: 50+ Years (1 of 2 - PCV) 12/02/1966 Zoster Vaccines (1 of 2) 12/02/1997 Colorectal Cancer Screening: Stool Based Tests (FOBT/FIT) 02/20/2022 Lung Cancer Screening (Low Dose CT) 02/20/2022 DTaP,Tdap,and Td Vaccines (4 - Td or Tdap) 10/23/2022 10/23/2012, 10/28/2002, 03/14/2002 COVID-19 Vaccine ( season) 2024 11/22/2023, 12/31/2022, 12/31/2022, Additional history exists Influenza Vaccine (#1) 2024 , 12/31/2022, 12/28/2022, Additional history exists Hypertension/CHF/CAD Annual BMP Blood Test 06/01/2025 06/01/2024, 01/30/2024, 07/25/2023, Additional history exists Falls Risk Assessment 11/01/2025 11/01/2024 Medicare Annual Wellness Visit 11/01/2025 11/01/2024 Social Influencers of Health Screening 11/01/2025 11/01/2024 Cholesterol Screening (Lipid Panel) 01/29/2029 01/30/2024, 07/25/2023, 07/25/2023 Osteoporosis Screening (Bone Density Screening) 04/29/2030 04/29/2020 Hepatitis C Screening Completed 01/02/2013 Colorectal Cancer Screening: Colonoscopy Discontinued 12/20/2017 RSV Immunization Adult Patients Completed 11/22/2023, 12/28/2022 Breast Cancer Screening Discontinued 05/15/19, 05/10/2023, 05/05/2022, Additional history exists Depression Screening Completed 11/01/2024 HIB Vaccines Aged Out No longer eligi ble based on patient's age to complete this topic HPV Vaccines Aged Out No longer eligi ble based on patient's age to complete this topic Hepatitis A Vaccines Aged Out No long er eligible based on patient's age to complete this topic Hepatitis B Vaccines Aged Out No long er eligible based on patient's age to complete this topic IPV Vaccines Aged Out No longer eligi ble based on patient's age to complete this topic MMR Vaccines Aged Out No longer eligi ble based on patient's age to complete this topic Meningococcal ACWY Vaccine Aged Out N o longer eligible based on patient's age to complete this topic Meningococcal B Vaccine Aged Out No l onger eligible based on patient's age to complete this topic RSV Immunization Patients Under 20 months Aged Out No longer eligible based on patient's age to complete this topic Varicella Vaccines Aged Out No longer eligible based on patient's age to complete this topic Procedures Procedure Name Priority Date/Time Associated Diagnosis Comments EXTERNAL CLINICAL LAB 12/28/2024 NON-GYNECOLOGIC CYTOLOGY Routine 11/22/2024 1:01 PM EDT EXTERNAL CLINICAL LAB 10/22/2024 BASIC METABOLIC PANEL Routine 06/01/2024 1:11 PM EDT Lung nodule MG MAMMO DIGITAL SCREENING W AARON BILAT Routine 05/14/2024 1:47 PM EST Encounter for screening mammogram for breast cancer LIPID PANEL WITH REFLEX TO DIRECT LDL Routine 01/30/2024 2:09 PM EST Essential hypertension, benign Pure hypercholesterolemia DXA BONE DENSITY STUDY 1+ SITS AXIAL SKEL Routine 04/29/2020 2:06 PM EST Encounter for screening for osteoporosis COLONOSCOPY Routine 12/20/2017 HEPATITIS C SCREENING Routine 01/02/2013 from Last 3 Months or Most Recently Relevant to Health Maintenance Results * External clinical lab (12/28/2024) Only the most recent of2 resultswithin the time period is included. us Provider [facility] LAB BLOOD ORDERABLES Fin al Result * Non-gynecologic cytology (11/22/2024 1:01 PM EDT) us Historical Provider LAB CYTOLOGY ORDERABLES F inal Result * (ABNORMAL) Basic metabolic panel (06/01/2024 1:11 PM EDT) Sodium 141 133 - 145 mmol/L LAB CHEMISTRY METHOD 06/01/2024 4:58 PM [facility] Potassium 4.2 3.5 - 5.5 mmol/L LAB CHEMISTRY METHOD 06/01/2024 4:58 PM [facility] Chloride 105 96 - 110 mmol/L LAB CHEMISTRY METHOD 06/01/2024 4:58 PM [facility] CO2 31 21 - 32 mmol/L LAB CHEMISTRY METHOD 06/01/2024 4:58 PM [facility] Anion Gap 5 3 - 11 LAB CHEMISTRY METHOD 06/01/2024 4:58 PM [facility] Glucose 141(H) 70 - 100 mg/dL LAB CHEMISTRY METHOD 06/01/2024 4:58 PM [facility] BUN 18 5 - 25 mg/dL LAB CHEMISTRY METHOD 06/01/2024 4:58 PM [facility] Creatinine 0.85 0.50 - 1.10 mg/dL LAB CHEMISTRY METHOD 06/01/2024 4:58 PM [facility] eGFR 71 >=60 mL/min/1. 73m2 LAB CHEMISTRY METHOD 06/01/2024 4:58 PM [facility] Comment:Calculation based on the Chronic Kidney Disease Epidemiology Collaboration (CKD-EPI) equation refit without adjustment for race. BUN/Creatinine Ratio 21.2 LAB CHEMISTRY METHOD 06/01/2024 4:58 PM [facility] Calcium 9.2 8.5 - 10.5 mg/dL LAB CHEMISTRY METHOD 06/01/2024 4:58 PM [facility] Blood Venous blood specimen / Unknown Venipuncture / Unknown 06/01/2024 1:11 PM EDT 06/01/2024 1:11 PM EDT us Skye BLANCAS LAB BLOOD ORDERABLES Final Result [facility] [address] [place] [address], [place] [phone] * MG Mammo Digital Screening w Aaron bilat (05/14/2024 1:47 PM EST) Anatomical Region Laterality Modality Breast Bilateral Mammography 05/15/2024 9:09 AM EST Impressions 05/15/2024 9:48 AM EST Benign. BI-RADS CATEGORY: 2 - BENIGN RECOMMENDATION: Screening bilateral mammogram is recommended in 1 year. Mammo Location: [facility], [address] [place] [address], [phone], . -------- FINAL REPORT -------- Dictated By: Devorah Rizvi Dictated Date: 05/15/2024 09:09 ET Assigned Physician: Devorah Rizvi Reviewed and Electronically Signed By: Devorah Rizvi Signed Date: 05/15/2024 09:48 ET Workstation ID: [id number] Transcribed By: Self Edit Transcribed Date: 05/15/2024 09:10 ET Narrative 05/15/2024 9:48 AM EST CLINICAL: 78 years old, Female, routine annual exam. COMPARISON: Mammograms dating back to 04/29/2020 with most recent of 05/10/2023. TECHNIQUE: Bilateral MLO and CC views were obtained digitally with 3-D mammogram (digital breast tomosynthesis). Computer-aided detection was utilized in evaluation of this exam (CAD). FINDINGS: There is no evidence of suspicious mass or architectural distortion. No worrisome calcifications are evident. Previously biopsied benign nodule with associated biopsy clip in the left breast is again noted. There has been no significant change from prior exam(s). BREAST DENSITY: B - There are scattered areas of fibroglandular density. Procedure Note Devorah Rizvi MD - 05/15/2024 CLINICAL: 78 years old, Female, routine annual exam. COMPARISON: Mammograms dating back to 04/29/2020 with most recent of05/10/2023. TECHNIQUE: Bilateral MLO and CC views were obtained digitally with 3-Dmammogram (digital breast tomosynthesis). Computer-aided detection wasutilized in evaluation of this exam (CAD). FINDINGS: There is no evidence of suspicious mass or architectural distortion. Noworrisome calcifications are evident. Previously biopsied benign nodulewith associated biopsy clip in the left breast is again noted. There hasbeen no significant change from prior exam(s). BREAST DENSITY: B - There are scattered areas of fibroglandular density. IMPRESSION: Benign. BI-RADS CATEGORY: 2 - BENIGN RECOMMENDATION: Screening bilateral mammogram is recommended in 1 year. Mammo Location: [facility], [address] [place] [address], [id number], . -------- FINAL REPORT -------- Dictated By: Devorah Rizvi Dictated Date: 05/15/2024 09:09 ET Assigned Physician: Devorah Rizvi Reviewed and Electronically Signed By: Devorah Rizvi Signed Date: 05/15/2024 09:48 ET Workstation ID: [id number] Transcribed By: Self Edit Transcribed Date: 05/15/2024 09:10 ET Celina Guevara MD IM BI PROCEDURES Final Result * Lipid panel with reflex to direct LDL (01/30/2024 2:09 PM EST) Cholesterol 146 0 - 200 mg/dL LAB CHEMISTRY METHOD 01/30/2024 6:35 PM [facility] Triglycerides 91 0 - 150 mg/dL LAB CHEMISTRY METHOD 01/30/2024 6:35 PM EST [facility] HDL 63 >=40 mg/dL LAB CHEMISTRY METHOD 01/30/2024 6:35 PM [facility] LDL Calculated 65 0 - 100 mg/dL LAB CHEMISTRY METHOD 01/30/2024 6:35 PM [facility] VLDL Cholesterol Paras 18.2 mg/dL LAB CHEMISTRY METHOD 01/30/2024 6:35 PM EST [facility] Non HDL Chol. (LDL+VLDL) 83 <145 mg/dL LAB CHEMISTRY METHOD 01/30/2024 6:35 PM EST [facility] Chol/HDL Ratio 2.3 0.0 - 4.4 LAB CHEMISTRY METHOD 01/30/2024 6:35 PM EST [facility] Blood Venous blood specimen / Unknown Venipuncture / Unknown 01/30/2024 2:09 PM EST 01/30/2024 2:09 PM EST us Celina Guevara MD LAB BLOOD ORDERABL ES Final Result [facility] [address] [place] [address], * DXA BONE DENSITY STUDY 1+ SITS AXIAL SKEL (04/29/2020 2:06 PM EST) Anatomical Region Laterality Modality Bone Densitometr y 08/30/2019 4:12 PM EDT Narrative 04/29/2020 2:50 PM EST BONE DENSITY (DEXA) Lumbar Spine T-score is 1.9. (SD relative to 20-29 y/o adult) Z-score is 4.1. (SD relative to age matched peers) This is considered normal by WHO criteria. Left Hip T-score is 1.0. Z-score is 3.0. This is considered normal by WHO criteria. IMPRESSION: This patient is considered to have normal bone density by WHO criteria. The [facility] Department of Internal Medicine recommends using National Osteoporosis Foundation (NOF) guidelines in treatment decisions related to osteoporosis. NOF guidelines suggest considering treatment for postmenopausal women and men aged 50 or older presenting with the following: History of hip or vertebral fracture. T-score = -2.5 (DXA) at the femoral neck, total hip, or spine, after appropriate evaluation to exclude secondary causes. Low bone mass (T-score between -1.0 and -2.5 at the femoral neck or spine) AND a 10-year probability of a hip fracture = 3% OR a 10-year probability of a major osteoporosis-related fracture = 20% based on the [place]-adapted WHO algorithm Please note that all treatment decisions require clinical judgment and consideration of individual patient factors, including patient preferences, co-morbidities, previous drug use, risk factors not captured in the FRAX model (e.g., frailty, falls, vitamin D deficiency, increased bone turnover, interval significant decline in bone density) and possible under- or over-estimation of fracture risk by FRAX. Optional alternative screening schedule based on moy Lou., [facility] April 01, 2011 for patients with osteopenia (based on hip BMD T-score) is as follows: * advanced osteopenia (T scores -2.00 to -2.49), BMD testing every year * moderate osteopenia (T scores -1.50 to -1.99), BMD testing every 5 years mild osteopenia or normal BMD (T scores -1.50 and higher), BMD testing every 15 years Procedure Note Devorah Rizvi MD - 03/02/2022 BONE DENSITY (DEXA) Lumbar Spine T-score is 1.9. (SD relative to 20-29 y/o adult) Z-score is 4.1. (SD relative to age matched peers) This is considered normal by WHO criteria. Left Hip T-score is 1.0. Z-score is 3.0. This is considered normal by WHO criteria. IMPRESSION: This patient is considered to have normal bone density by WHO criteria. The [facility] Department of Internal Medicine recommendsusing National Osteoporosis Foundation (NOF) guidelines in treatment decisions related toosteoporosis. NOF guidelines suggest considering treatment for postmenopausal women and menaged 50 or older presenting with the following: History of hip or vertebral fracture. T-score = -2.5 (DXA) at the femoral neck, total hip, or spine, afterappropriate evaluation to exclude secondary causes. Low bone mass (T-score between -1.0 and -2.5 at the femoral neck or spine)AND a 10-year probability of a hip fracture = 3% OR a 10-year probability of a majorosteoporosis-related fracture = 20% based on the [place]-adapted WHO algorithm Please note that all treatment decisions require clinical judgment andconsideration of individual patient factors, including patient preferences, co- morbidities,previous drug use, risk factors not captured in the FRAX model (e.g., frailty, falls, vitaminD deficiency, increased bone turnover, interval significant decline in bone density) andpossible under- or over-estimation of fracture risk by FRAX. Optional alternative screening schedule based on bishnu Lou al., NEJMJanuary 2011 for patients with osteopenia (based on hip BMD T-score) is as follows: * advanced osteopenia (T scores -2.00 to -2.49), BMD testing every year * moderate osteopenia (T scores -1.50 to -1.99), BMD testing every 5years mild osteopenia or normal BMD (T scores -1.50 and higher), BMD testingevery 15 years Nohelia Guajardo MD [facility] DXA PROCEDURES Final Res ult * Colonoscopy (12/20/2017) [facility] Colonoscopy no interpretation , abstracted Anatomical Region Laterality Modality Other Historical Provider HEALTH MAINTENANCE Final Result * Hepatitis C Screening (01/02/2013) [facility] Hepatitis C Screening abstracted Historical Provider HEALTH MAINTENANCE Final Result from Last 3 Months or Most Recently Relevant to Health Maintenance Insurance MEDICARE [facility] Care Teams Transportation Museum Helper Relationship Specialty Start Date End Date Celina Guevara MD [address] [place] [phone] PCP - General 04/25/10
--- OUTSIDE RECORDS SUMMARY | 2025-01-18 09:46 | XMS_ITS | Encounter Summary ---
Author Organization [facility] Address [address] [place] [address] Care Team Providers Care Netsuite Consultant Name Role Phone Cordell Guevara MD Primary Care Provider [phone] [phone] Moses Reis MD Unavailable Unavailable Joaquim Cross MD Unavailable Unavailabl e Encounter Details Date Type Department Care Team Description 02/20/2021 Ore Tester Report Medical Records [address] [place] [address] Justin Barnard Np Social History Tobacco Use Types Packs/Day Years [...] week 07/23/2022 How often do you attend [facility] or confucianist services? Never 07/23/2022 Do you belong to any clubs o r organizations such as baptism groups, unions, fraternal or athletic groups, or [...] Exposure Response Date Recorded In the last month, have you been in contact with someone who was confirmed or suspected to have Coronavirus / COVID-19? No / Unsure 02/03/2021 9:49 AM EST documented as of this encounter Plan of Treatment Not on file documented as of this encounter Visit Diagnoses Not on filedocumented in this encounter Care Teams Netsuite Consultant Relationship Specialty Start Date End Date Cordell Guevara MD [address] [place] [address] PCP - General 04/25/10 Moses Reis MD [address] [place] [address] Vascular Surgery 07/23/22 Joaquim Cross MD [address] [place] [address] Referring Physician Internal Medicine 07/23/22 documented as of this encounter
--- OUTSIDE RECORDS SUMMARY | 2025-01-18 09:46 | XMS_ITS | Encounter Summary ---
Author Organization [facility] Address [address] [place] [address] Care Team Providers Care Loan Consultant Name Role Phone Cordell Guevara MD Primary Care Provider [phone] [phone] Moses Reis MD Unavailable Unavailable Joaquim Cross MD Unavailable Unavailabl e Encounter Details Date Type Department Care Team Description 06/11/2015 Business Doc Medical Records [address] [place] [address] Abstract, Provider Social History Tobacco Use Types [...] How often do you attend chur or caodaism services? Never 07/23/2022 Do you belong to any clubs o r organizations such as yarsani groups, unions, fraternal or athletic groups, or [...] on filedocumented in this encounter Care Teams Loan Consultant Relationship Specialty Start Date End Date Cordell Guevara MD [address] [place] [address] PCP - General 04/25/10 Moses Reis MD [address] [place] [address] Vascular Surgery 07/23/22 Joaquim Cross MD [address] [place] [address] Referring Physician Internal Medicine 07/23/22 documented as of this encounter
--- OUTSIDE RECORDS SUMMARY | 2025-01-18 09:46 | XMS_ITS | Encounter Summary ---
Author Organization [facility] Address [address] [place] [address] Care Team Providers Care Assistant Clinical Director Name Role Phone Cordell Guevara MD Primary Care Provider [phone] [phone] Moses Reis MD Unavailable Unavailable Joaquim Cross MD Unavailable Unavailabl e Encounter Details Date Type Department Care Team Description 11/06/2020 [facility] Medical Records [address] [place] [address] Abstract, Provider Social History Tobacco Use Types [...] How often do you attend chur or voodoo services? Never 07/23/2022 Do you belong to any clubs o r organizations such as yazdanism groups, unions, fraternal or athletic groups, or [...] have Coronavirus / COVID-19? No / Unsure 11/06/2020 12:46 PM EDT documented as of this encounter Plan of Treatment Not on file documented as of this encounter Visit Diagnoses Not on filedocumented in this encounter Care Teams Assistant Clinical Director Relationship Specialty Start Date End Date Cordell Guevara MD [address] [place] [address] PCP - General 04/25/10 Moses Reis MD [address] [place] [address] Vascular Surgery 07/23/22 Joaquim Cross MD [address] [place] [address] Referring Physician Internal Medicine 07/23/22 documented as of this encounter
--- OUTSIDE RECORDS SUMMARY | 2025-01-18 09:46 | XMS_ITS | Encounter Summary ---
Author Organization [facility] Address [address] [place] [address] Care Team Providers Care Support Team Assoc Name Role Phone Cordell Guevara MD Primary Care Provider [phone] [phone] Moses Reis MD Unavailable Unavailable Tressa Cross MD Unavailable Unavailabl e Reason for Visit * Reason Onset Date Comments Hatch Boss Feedback 01/27/2021 TRESSA Estrella Encounter Details Date Type Department Care Team Description 01/27/2021 Telephone Adult Medicine - [place] [address] [place] [address] Cordell Guevara MD [address] [place] [address] Hatch Boss Feedback (TRESSA CROSS) Social History Tobacco Use Types Packs/Day Years [...] often do you attend chur ch or temple services? Never 07/23/2022 Do you belong to any clubs o r organizations such as advent groups, unions, fraternal or athletic groups, or [...] have Coronavirus / COVID-19? No / Unsure 01/28/2021 3:25 PM EST documented as of this encounter Miscellaneous Notes * Telephone Encounter - Heydi Escalante - 01/27/2021 10:25 AM EST [facility] Specialty Referral Status [ Save Response to Batch ] Request: [id number] [facility] Trace #: [id number] Subscriber: LORRAINE DELVALLE Submitter : MYA HUDSON Submitter Type: Provider Referral (#[id number]) Specialty Care Review Type: Initial Certification Status : Certified in total Service Type : Medical Care Place Of Service : Office Visits : 6 Service Date : 12/12/2020-12/12/2021 Service Providers Provider Name ID Provider Type Specialty MD TRESSA CROSS NPI : [id number] Performing Specialist documented in this encounter Plan of Treatment Not on file documented as of this encounter Visit Diagnoses Not on filedocumented in this encounter Care Teams Support Team Assoc Relationship Specialty Start Date End Date Cordell Guevara, [address] [place] [address] PCP - General 04/25/10 Moses Reis MD [address] [place] [address] Vascular Surgery 07/23/22 Tressa Cross MD [address] [place] [address] Referring Physician Internal Medicine 07/23/22 documented as of this encounter
--- OUTSIDE RECORDS SUMMARY | 2025-01-18 09:46 | XMS_ITS | Encounter Summary ---
Author Organization [facility] Address [address] [place] [address] Care Team Providers Care Supervisor Cap And Hat Production Name Role Phone Cordell Guevara MD Primary Care Provider [phone] Moses Reis MD Unavailable Unavailable Joaquim Cross MD Unavailable Unavailabl e Encounter Details Date Type Department Care Team Description 05/02/2020 Business Doc Medical Records [address] [place] [address] Abstract, Provider Social History Tobacco Use Types [...] How often do you attend chur or zoroastrianism services? Never 07/23/2022 Do you belong to [...] place to sleep or slept in a senior living (including now)? No 07/23/2022 Sex Assigned at Date Recorded Not on file Job Start Date Occupation Industry Not on file Not on file Not on file COVID-19 Exposure Response Date Recorded In the last month, have you been in contact with someone who was confirmed or suspected to have Coronavirus / COVID-19? No / Unsure 04/29/2020 1:46 PM EST documented as of this encounter Plan of Treatment Not on file documented as of this encounter Visit Diagnoses Not on filedocumented in this encounter Care Teams Supervisor [employer] Production Relationship Specialty Start Date End Date Cordell Guevara MD [address] [place] [address] PCP - General 04/25/10 Moses Reis MD [address] [place] [address] Vascular Surgery 07/23/22 Joaquim Cross MD [address] [place] [address] Referring Physician Internal Medicine 07/23/22 documented as of this encounter
--- OUTSIDE RECORDS SUMMARY | 2025-01-18 09:46 | XMS_ITS | Encounter Summary ---
Author Organization [facility] Address [address] [place] [address] Care Team Providers Care Train Station Server Name Role Phone Cordell Guevara MD Primary Care Provider [phone] [phone] Moses Resi MD Unavailable Unavailable Joaquim Cross MD Unavailable Unavailabl e Encounter Details Date Type Department Care Team Description 06/20/2017 Business Doc Medical Records [address] [place] [address] Abstract, Provider Social History Tobacco Use Types [...] How often do you attend chur or hinduism services? Never 07/23/2022 Do you belong to [...] on filedocumented in this encounter Care Teams Train Station Server Relationship Specialty Start Date End Date Cordell Guevara MD [address] [place] [address] PCP - General 04/25/10 Moses Reis MD [address] [place] [address] Vascular Surgery 07/23/22 Joaquim Cross MD [address] [place], [place] Referring Physician Internal Medicine 07/23/22 documented as of this encounter
--- OUTSIDE RECORDS SUMMARY | 2025-01-18 09:46 | XMS_ITS | Encounter Summary ---
Author Organization [facility] Address [address] [place] [address] Care Team Providers Care Process Safety Specialist Name Role Phone Cordell Guevara MD Primary Care Provider [phone] Moses Reis MD Unavailable Unavailable Joaquim Cross MD Unavailable Unavailabl e Encounter Details Date Type Department Care Team Description 06/10/2014 Business Doc Medical Records [address] [place] [address] Abstract, Provider Social History Tobacco Use Types [...] How often do you attend chur or oriental orthodox services? Never 07/23/2022 Do you belong to any clubs o r organizations such as yazidism groups, unions, fraternal or athletic groups, or [...] place to sleep or slept in a fdc (including now)? No 07/23/2022 Sex Assigned at Date Recorded Not on file Job Start Date Occupation Industry Not on file Not on file Not on file documented as of this encounter Plan of Treatment Not on file documented as of this encounter Visit Diagnoses Not on filedocumented in this encounter Care Teams Process Safety Specialist Relationship Specialty Start Date End Date Cordell Guevara MD [address] [place] [address] PCP - General 04/25/10 Moses Reis MD [address] [place] [address] Vascular Surgery 07/23/22 Joaquim Cross MD [address] [place] [address] Referring Physician Internal Medicine 07/23/22 documented as of this encounter
--- OUTSIDE RECORDS SUMMARY | 2025-01-18 09:46 | XMS_ITS | Encounter Summary ---
Author Organization [facility] Address [address] [place] [address] Care Team Providers Care Auto Hauler Name Role Phone Cordell Guevara MD Primary Care Provider [phone] [phone] Moses Reis MD Unavailable Unavailable Joaquim Cross MD Unavailable Unavailabl e Reason for Visit * Reason Onset Date Comments Walk In 01/27/2015 pt in lab waitin area Orders Call 01/27/2015 Encounter Details Date Type Department Care Team Description 01/27/2015 Telephone Adult Medicine - [place] [address] [place] [address] Cordell Guevara MD [address] [place] [address] Walk In (pt in lab waiting area); Orders Call Social History Tobacco Use Types Packs/Day Years [...] often do you attend chur ch or nondenominational services? Never 07/23/2022 Do you belong to [...] place to sleep or slept in a care home (including now)? No 07/23/2022 Sex Assigned at Date Recorded Not on file Job Start Date Occupation Industry Not on file Not on file Not on file documented as of this encounter Miscellaneous Notes * Telephone Encounter - Cordell Guevara MD - 01/27/2015 11:27 AM EST Labs ordered * Telephone Encounter - Adrian Soares LPN - 01/27/2015 10:56 AM EST Please advise * Telephone Encounter - Va Buckley - 01/27/2015 10:24 AM EST Pt requesting to have orders placed for lab work to be done before her appt on 01/29/15 - pt statesshe is not sure of what needs to be requested - pt in lab waiting area - please advise documented in this encounter Plan of Treatment Not on file documented as of this encounter Results * (ABNORMAL) VITAMIN B-12, ASSAY (08/13/2015 10:01 AM EDT) VITAMIN B12 194(L) 211 - 946 pg/mL 08/13/2015 3:37 PM EDT [facility] 08/13/2015 10:0 1 AM EDT 08/13/2015 10:01 AM EDT Cordell Guevara MD LAB Performing Organization Address [facility] Co de Phone Number [address] * (ABNORMAL) 25 HYDROXY INCLUDES FRACTIONS IF PERFORMED (08/13/2015 10:01 AM EDT) Pathologist [facility] 25-HYDROXY VITAMIN D TOTAL 15(L) 30 - 80 ng/ml 08/13/2015 4:37 PM EDT [facility] Comment: Vitamin D Reference Ranges Deficiency: <20 ng/mL Insufficiency: 20-29 ng/mL Optimal: 30-80 ng/mL High: >80 ng/mL 08/13/2015 10:0 1 AM EDT 08/13/2015 10:01 AM EDT Cordell Guevara MD LAB Performing Organization Address [facility] Phone Number [address] * LIPID PROFILE (08/13/2015 10:01 AM EDT) Pathologist [facility] Cholesterol 167 0 - 200 mg/dL 08/13/2015 3:37 PM EDT [facility] TRIGLYCERIDES 139 0 - 150 mg/dL 08/13/2015 3:37 PM EDT [facility] HDL CHOLESTEROL 64 >40 mg/dL 6 3:37 PM T [facility] LDL CALCULATED 75 0 - 100 mg/dL 08/13/2015 3:37 PM T [facility] TC-HDLC RATIO 3 0.0 - 4.4 mg/dL 08/13/2015 3:37 PM EDT [facility] 08/13/2015 10:0 1 AM EDT 08/13/2015 10:01 AM EDT Cordell Guevara MD LAB Performing Organization Address [facility] de Phone Number [address] * (ABNORMAL) CBC (AUTO DIFF PLATELET) (08/13/2015 10:01 AM EDT) Pathologist [facility] WBC 6.2 4.8 - 10.8 x10-3 08/13/2015 12:53 PM EDT [facility] RBC 4.2 3.8 - 4.8 x10-6 08/13/2015 12:53 PM EDT [facility] HGB 12.3 11.5 - 16.0 g/dl 08/13/2015 12:53 PM EDT [facility] HCT 38.7 35 - 47 % 08/13/2015 12:53 PM EDT [facility] MCV 91.3 79 - 98 fl 08/13/2015 12:53 PM EDT [facility] MCH 29.0 27 - 32 pg 08/13/2015 12:53 PM EDT [facility] MCHC 31.8(L) 32 - 37 g/dl 08/13/2015 12:53 PM EDT [facility] RDW 12.9 11 - 15 % 08/13/2015 12:53 PM EDT [facility] PLT COUNT 214 130 - 400 x10-3 08/13/2015 12:53 PM EDT [facility] MEAN PLATELET VOLUME 10.3 7 - 11 fl 08/13/2015 12:53 PM EDT [facility] NEUT % 55.4 41 - 85 % 08/13/2015 12:53 PM EDT [facility] LYMPH % 33.2 15 - 48 % 08/13/2015 12:53 PM EDT [facility] MONO % 8.6 0 - 12 % 08/13/2015 12:53 PM EDT [facility] EOS % 2.3 0 - 5 % 08/13/2015 12:53 PM EDT [facility] BASO % 0.5 0 - 2 % 08/13/2015 12:53 PM EDT [facility] 08/13/2015 10:0 1 AM EDT 08/13/2015 10:01 AM EDT Cordell Guevara MD LAB [facility] [address] [facility] * (ABNORMAL) COMPREHENSIVE METABOLIC PANEL (08/13/2015 10:01 AM EDT) [facility] Signature GLUCOSE 111(H) 70 - 100 mg/dL 08/13/2015 3:37 PM EDT [facility] Comment: Reference range applicable to fasting specimens only Based on recommendations from the ADA and AACE, the fasting glucose reference range has been changed to 70-100 mg/dL. This change is effective July 28, 2009 BUN 15 5 - 25 mg/dL 08/13/2015 3:37 PM EDT [facility] CREAT 0.9 0.7 - 1.5 mg/dL 08/13/2015 3:37 PM EDT [facility] BUN/CREAT RATIO 16.7 6.0 - 20.0 08/13/2015 3:37 PM EDT [facility] GFR > 60 >60 08/13/2015 3:37 PM EDT [facility] Comment: If patient is -Maldivian, multiply result by 1.21 Chronic Kidney Disease: < 60 ml/min/1.73 square meters Kidney Failure: < 15 ml/min/1.73 square meters Sodium 142 133 - 145 mEq/L 08/13/2015 3:37 PM EDT [facility] Potassium 4.7 3.5 - 5.5 mEq/L 08/13/2015 3:37 PM EDT [facility] Chloride 97 96 - 108 mEq/L 08/13/2015 3:37 PM EDT [facility] CO2 30.5 21.0 - 32.0 mEq/L 08/13/2015 3:37 PM EDT [facility] CALCIUM 9.3 8.5 - 10.5 mg/dL 08/13/2015 3:37 PM EDT [facility] TOTAL PROTEIN 7.0 6.0 - 8.3 gm/dL 08/13/2015 3:37 PM EDT [facility] Albumin 3.9 3.2 - 5.6 gm/dL 08/13/2015 3:37 PM EDT [facility] GLOBULIN 3.1 1.9 - 4.4 gm/dL 08/13/2015 3:37 PM EDT [facility] A/G RATIO 1.3 1.1 - 2.3 08/13/2015 3:37 PM EDT [facility] BILI,TOTAL 0.4 0.0 - 1.2 mg/dL 08/13/2015 3:37 PM EDT [facility] AST (SGOT) 16 10 - 42 U/L 08/13/2015 3:37 PM EDT [facility] ALT( SGPT) 14 10 - 60 U/L 08/13/2015 3:37 PM EDT [facility] ALK PHOS 56 42 - 121 U/L 08/13/2015 3:37 PM EDT [facility] 08/13/2015 10:0 1 AM EDT 08/13/2015 10:01 AM EDT Cordell Guevara MD LAB Performing Organization Address City/State/[facility] de Phone Number [facility] [address] [facility] documented in this encounter Visit Diagnoses Diagnosis BENIGN ESSENTIAL HYPERTENSION Essential hypertension, benign Pure hypercholesterolemia 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
--- OUTSIDE RECORDS SUMMARY | 2025-01-18 09:46 | XMS_ITS | Encounter Summary ---
Author Organization [facility] Address [address] [place] [address] Care Team Providers Care Combine Driver Name Role Phone Cordell Guevara MD Primary Care Provider [phone] [phone] Moses Reis MD Unavailable Unavailable Joaquim Cross MD Unavailable Unavailabl e Encounter Details Date Type Department Care Team Description 12/12/2012 Business Doc Medical Records [address] [place] [address] Abstract, Provider Social History Tobacco Use Types [...] any clubs o r organizations such as restorationism groups, unions, fraternal or athletic groups, or [...] on filedocumented in this encounter Care Teams Combine Driver Relationship Specialty Start Date End Date Cordell Guevara MD [address] [place] [address] PCP - General 04/25/10 Moses Reis MD [address] [place] [address] Vascular Surgery 07/23/22 Joaquim Cross MD [address] [place] [address] Referring Physician Internal Medicine 07/23/22 documented as of this encounter
== END 2025-01-18 09:22 | disposition home or self-care (01) ==
LOC: HO.HPHYS 08:55
PROVIDERS: Visit Provider Physical Medicine & Rehabilitation
DX: M54.16 Radiculopathy, lumbar region (principal)
CPT/HCPCS: 62323

== ENCOUNTER 2025-02-14 14:02 | Outpatient (AMB) | payer MEDICARE, BC, SELFPAY ==
--- NOTE | 2025-02-14 14:03 | A.PHYSOV_ITS ---
Vital Signs 02/14/25 14:04 Height 5 ft Weight 208 lb BMI 40.6 Intake Visit Reasons: F/U after injection 01/18/2025 Intake Note: Patient is a 79 year old female in office today for a follow up after L5-S1 interlaminar epidural injection 01/18/25 . Allergies hydrocortisone (From [facility] ([id number])) Allergy (Unknown, Verified 02/14/25 14:04) Unknown neomycin (From [facility] ([id number])) Allergy (Unknown, Verified 02/14/25 14:04) Unknown Penicillins Allergy (Unknown, Verified 02/14/25 14:04) Unknown phenylephrine Allergy (Unknown, Verified 02/14/25 14:04) Unknown polymyxin B (From [facility] ([id number])) Allergy (Unknown, Verified 02/14/25 14:04) Unknown tetracaine Allergy (Unknown, Verified 02/14/25 14:04) Unknown tropicamide Allergy (Unknown, Verified 02/14/25 14:04) Unknown HPI Comments Details: History of Present Illness The patient is a 79 year old female presenting for a follow-up visit for lower back and bilateral hip pain. She reports pain primarily with standing and walking, which subsides with sitting down. She also notes that bending over exacerbates her pain. The patient has previously received several L5-S1 epidural injections, which provided an 80% reduction in her symptoms. She is now status post a repeat procedure on January 18, 2025, which she reports was not as effective as an injection she received in the summer. A lumbosacral spine MRI performed on April 23, 2024, was generally unre markable, showing degenerative changes and mild spinal stenosis. The patient's past medical history is significant for a previously resected carcinoid tumor. She also had part of her lung removed in the summer and is currently awaiting biopsy results for her thyroid. Pain Description - Location: The patient reports lower back and bilateral hip pain, specifying the primary location as the left buttock. - Quality: The pain is described as intermittent, coming and going. - Radiation: The pain does not travel down the leg. - Exacerbating Factors: Pain is worse with standing, walking, and bending over. - Relieving Factors: Pain subsides with sitting down. Results - Imaging: A lumbar sacral spine MRI from April 23, 2024, showed degenerative changes and mild spinal stenosis. - Procedures: The patient is awaiting results from a recent thyroid biopsy. [facility] Medical History (Updated 02/14/25 @ 14:15 by Chacorta Bella DO) Sacroiliac inflammation Sacroiliac dysfunction Surgical History (Updated 02/14/25 @ 14:07 by Maria Isabel Martell MA) History of coronary artery stent placement History of cataract surgery H/O: hysterectomy History of lung surgery Social History (Updated 02/14/25 @ 14:06 by Maria Isabel Martell MA) Alcohol intake: current Alcohol intake frequency: does not drink Patient Tobacco Use Status: Former Tobacco user Current occupational status: retired Review of Systems Narrative Review of Systems - Constitutional: Denies fever or chills. - Musculoskeletal: Reports lower back pain and bilateral hip pain, localized to the left buttock. - Neurological: Reports sciatica but denies that the pain travels down her leg. - Gastrointestinal: Denies any change in bowel habits. - Genitourinary: Denies any change in bladder habits. Physical Exam Exam Exam: Physical Exam - Musculoskeletal: Palpation elicits pain in the left buttock. Pain with palpation over left SI sulcus. Left SI provocative maneuvers were positive including fabere, Newton and SI compression test. Gait was waddling without antalgia. Patient was able to perform heel walk and toe walk with support for balance. Lumbar extension was restricted. Neurological examination was nonfocal. Patient demonstrated no upper motor neuron signs. Vital Signs: BMI result Body Mass Index 40.6 Assessment & Plan Assessment & Plan (1) Lumbar radiculitis: Code(s): M54.16 - Radiculopathy, lumbar region Category: Medical (2) Sacroiliac dysfunction: Code(s): M53.3 - Sacrococcygeal disorders, not elsewhere classified Category: Medical (3) Sacroiliac inflammation: Code(s): M46.1 - Sacroiliitis, not elsewhere classified Category: Medical Plan Pain Management - Analgesia: The patient has received several L5-S1 epidural injections, with one in the summer providing excellent relief, while the most recent injection was less effective. No other analgesics were discussed. - Affect: The patient reports feeling stressed and that she has a lot going on, including her 's recent lung cancer diagnosis and her own pending t hyroid biopsy results. - Activities of Daily Living: Pain interferes with activities such as bending over to pick things up. When her pain was well-controlled over the summer, she was able to go to the beach. - Adverse Effects: No adverse effects from treatment were discussed. - Aberrant Drug-Related Behaviors: No aberrant behaviors were noted or discussed. Plan Patient was informed and verbally consented to the use of an ambient scribe for clinic note documentation during this visit. 1. Left Sacroiliac Joint Pain The patient's symptoms of low back and left buttock pain, along with physical exam findings of localized tenderness and positive provocative testing, are suggestive of left sacroiliac joint arthralgia rather than a primary lumbar spine issue, despite a history of relief from lumbar epidural injections. Her MRI finding of mild spinal stenosis is noted not to be severe. The plan is to defer intervention at this time due to the patient's personal stressors. When she is ready to proceed, a diagnostic and therapeutic left sacroiliac joint injection will be performed instead of a repeat lumbar epidural. This different type of injection can be done whenever she needs it, without the usual waiting period for repeat epidurals. 2. History Of Carcinoid Tumor The patient has a history of a resected carcinoid tumor and a recent resection. This history is noted, with no active management planned in this visit. 3. Thyroid Nodule The patient is awaiting biopsy results for a thyroid issue. Follow-up will be with her other providers. Discussion Notes I discussed with the patient that her symptoms and my examination findings suggest her pain is more likely coming from her left sacroiliac (SI) joint rather than primarily her lumbar spine. While she has received relief from lumbar epidural injections in the past, the most recent one had diminished efficacy, and her MRI does not show severe spinal stenosis. We discussed that for the next procedure, we would change the plan and perform a left SI joint injection, which may provide better relief. I explained that because this is a different type of injection, she could have it done at any time she feels it is necessary without needing to wait a specific interval. The patient is managing significant personal and family health issues and agreed to defer the procedure for now. She will call my office after the first of the year to schedule when she is ready. Patient Instructions - We believe your pain may be coming from your sacroiliac (SI) joint, which is a joint in your lower back and buttock area. - For now, we will wait to do another injection, as you have several other things to take care of. - When you are ready for another procedure, we plan to do a different type of injection into your left SI joint. - Since this is a different kind of shot, you can have it whenever you feel you need it. - Please call our office after the New Year to schedule the injection when you are ready. Coding Level of Care Code Est Pt Level 4 (54176) Complex visit Add On G2211 Diagnoses Lumbar radiculitis M54.16 Sacroiliac dysfunction M53.3 Sacroiliac inflammation M46.1
[2025-02-14 14:04] VITALS: BMI 40.6
== END 2025-02-14 14:14 | disposition home or self-care (01) ==
LOC: HO.HPHYS 14:03
PROVIDERS: Visit Provider Physical Medicine & Rehabilitation
DX: M54.16 Radiculopathy, lumbar region (principal); M53.3 Sacrococcygeal disorders, not elsewhere classified; M46.1 Sacroiliitis, not elsewhere classified
CPT/HCPCS: 99214; G2211

== ENCOUNTER → 2025-02-14 14:02 | Outpatient (BNVA) | payer MEDICARE, SELFPAY | PROVIDERS: Visit Provider Physical Medicine & Rehabilitation | DX: M54.16 Radiculopathy, lumbar region (principal); M46.1 Sacroiliitis, not elsewhere classified; M53.3 Sacrococcygeal disorders, not elsewhere classified | CPT/HCPCS: 99212 ==